=== PATIENT | female | born 1980 | race Caucasian/White ===

== ENCOUNTER 2020-06-24 11:53 | Emergency (ER) | payer BC, OTHER ==
[2020-06-24 14:16] LABS: Absolute Lymphocytes (CBC) 2.2 K/uL (0.7-4.9); Basophils % 1.1 % (0-1.3); Lymphocytes % 34.2 % (15.3-44.8); MPV 8.9 fL (7.6-11.3); RBC Red Blood Cell Count 4.26 M/uL (3.86-4.86)
--- NOTE | 2020-06-24 14:20 | RAD REPORT ---
EXAM DESCRIPTION: RAD - Chest Single View - 06/24/2020 1:55 pm CLINICAL HISTORY: CHEST PAIN COMPARISON: None TECHNIQUE: AP portable chest image was obtained 06/24/2020 1:55 pm . FINDINGS: Lungs are clear. Heart and vasculature are normal. No measurable pleural effusion and no p neumothorax. No acute bony abnormality seen. No acute aortic findings suspected. IMPRESSION: No acute cardiopulmonary process.
[2020-06-24 14:24] LABS: Protime INR 0.95
[2020-06-24 14:42] LABS: ALT/SGPT 40 U/L (12-78); AST/SGOT 18 U/L (15-37); Albumin 4.3 g/dL (3.4-5.0); Alkaline Phosphatase 69 U/L (45-117); BUN Blood Urea Nitrogen 9 mg/dL (7-18); Bicarbonate 29 mmol/L (21-32); Bilirubin Direct < 0.1 mg/dL (0-0.2); Bilirubin Total 0.3 mg/dL (0.2-1.0); Glucose Level 79 mg/dL (74-106); Magnesium 2.1 mg/dL (1.8-2.4); NT PRO-BNP 35 pg/mL (<125); Potassium 3.5 mmol/L (3.5-5.1); Sodium Level 139 mmol/L (136-145); Troponin (Emerg Dept Use Only) < 0.02 ng/mL (0.0-0.045)
--- NOTE | 2020-06-24 16:38 | EDPHYS ---
Physician Documentation [facility] Name: Liya Pike Age: 40 yrs Sex: Female : 1980 Arrival Date: 06/24/2020 Time: 11:56 Bed 13 Private MD: ED Physician Cyrus Kline HPI: 06/24 16:46 This 40 yrs old Female presents to ER via Ambulatory with complaints of Heart kdr Problem, Chest Tightness. 16:46 The patient or guardian reports chest pain that is located primarily in the substernal kdr area, anterior chest wall, chest diffusely. The pain does not radiate. Associated signs and symptoms: Pertinent positives: nausea, shortness of breath. The chest pain is described as dull, a heaviness, a pressure. Duration: The patient or guardian reports multiple episodes, that are intermittent, that wax and wane, with no pattern. Modifying factors: The symptoms are alleviated by nothing. the symptoms are aggravated by. Severity of pain: At its worst the pain was mild. The patient has not recently seen a physician. 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 - Social history:: Smoking status: Patient denies any tobacco usage or history of. ROS: 16:46 Constitutional: Negative for fever, chills, and weight loss, Eyes: Negative for injury, kdr pain, redness, and discharge, Neck: Negative for injury, pain, and swelling, Cardiovascular: Negative for chest pain, palpitations, and edema, Respiratory: Negative for shortness of breath, cough, wheezing, and pleuritic chest pain, Abdomen/GI: Negative for abdominal pain, nausea, vomiting, diarrhea, and constipation, Back: Negative for injury and pain, : Negative for injury, bleeding, discharge, and swelling, MS/Extremity: Negative for injury and deformity, Skin: Negative for injury, rash, and discoloration, Psych: Negative for depression, anxiety, suicide ideation, homicidal ideation, and hallucinations, Allergy/Immunology: Negative for hives, rash, and allergies, Endocrine: Negative for neck swelling, polydipsia, polyuria, polyphagia, and marked weight changes, Hematologic/Lymphatic: Negative for swollen nodes, abnormal bleeding, and unusual bruising. 16:46 Neuro: Positive for weakness. 16:46 Cardiovascular: Positive for Chest pressure. kdr Exam: 16:46 Constitutional: This is a well developed, well nourished patient who is awake, alert, kdr and in no acute distress. Head/Face: Normocephalic, atraumatic. Eyes: Pupils equal round and reactive to light, extra-ocular motions intact. Lids and lashes normal. Conjunctiva and sclera are non-icteric and not injected. Cornea within normal limits. Periorbital areas with no swelling, redness, or edema. Neck: Trachea midline, no thyromegaly or masses palpated, and no cervical lymphadenopathy. Supple, full range of motion without nuchal rigidity, or vertebral point tenderness. No Meningismus. Chest/axilla: Normal chest wall appearance and motion. Nontender with no deformity. No lesions are appreciated. Cardiovascular: Regular rate and rhythm with a normal S1 and S2. No gallops, murmurs, or rubs. Normal PMI, no JVD. No pulse deficits. Respiratory: Lungs have equal breath sounds bilaterally, clear to auscultation and percussion. No rales, rhonchi or wheezes noted. No increased work of breathing, no retractions or nasal flaring. Abdomen/GI: Soft, non-tender, with normal bowel sounds. No distension or tympany. No guarding or rebound. No evidence of tenderness throughout. Back: No spinal tenderness. No costovertebral tenderness. Full range of motion. Skin: Warm, dry with normal turgor. Normal color with no rashes, no lesions, and no evidence of cellulitis. MS/ Extremity: Pulses equal, no cyanosis. Neurovascular intact. Full, normal range of motion. Neuro: Awake and alert, GCS 15, oriented to person, place, time, and situation. Cranial nerves II-XII grossly intact. Motor strength 5/5 in all extremities. Sensory grossly intact. Cerebellar exam normal. Normal gait. Psych: Awake, alert, with orientation to person, place and time. Behavior, mood, and affect are within normal limits. 19:29 ECG was reviewed by the Attending Physician. kdr Vital Signs: 12:06 BP 129 / 84; Pulse 85; Resp 15; Temp 98.4(O); Pulse Ox 99% on R/A; Weight 56.7 kg; ss Height 5 ft. 5 in. (165.10 cm); Pain 09/11; 13:50 BP 110 / 81; Pulse 76; Resp 16 S; Pulse Ox 99% on R/A; ca1 14:45 BP 115 / 85; Pulse 81; Resp 16 S; Pulse Ox 100% on R/A; ca1 15:28 BP 122 / 91; Pulse 82; Resp 16 S; Pulse Ox 100% on R/A; ca1 16:30 BP 104 / 74; Pulse 82; Resp 16 S; Pulse Ox 100% on R/A; ca1 12:06 Body Mass Index 20.80 (56.70 kg, 165.10 cm) ss MDM: 13:51 Patient medically screened. kb 19:29 Data reviewed: vital signs, nurses notes, lab test result(s), EKG, radiologic studies. kdr 06/24 13:43 Order name: Basic Metabolic Panel; Complete Time: 14:54 kb 06/24 13:43 Order name: CBC with Diff; Complete Time: 14:54 kb 06/24 13:43 Order name: LFT's; Complete Time: 14:54 kb 06/24 13:43 Order name: Magnesium; Complete Time: 14:54 kb 06/24 13:43 Order name: NT PRO-BNP; Complete Time: 14:54 kb 06/24 13:43 Order name: PT-INR; Complete Time: 14:54 kb 06/24 12:35 Order name: EKG; Complete Time: 12:36 ss 06/24 12:35 Order name: EKG - Nurse/Tech; Complete Time: 12:35 ss 06/24 13:43 Order name: Troponin (emerg Dept Use Only); Complete Time: 14:54 kb 06/24 13:43 Order name: XRAY Chest (1 view); Complete Time: 14:54 kb 06/24 13:43 Order name: Cardiac monitoring; Complete Time: 14:10 kb 06/24 13:43 Order name: IV Saline Lock; Complete Time: 14:10 kb 06/24 13:43 Order name: Labs collected and sent; Complete Time: 14:10 kb 06/24 14:56 Order name: Troponin (emerg Dept Use Only); Complete Time: 16:35 kdr 06/24 13:43 Order name: O2 Per Protocol; Complete Time: 14:10 kb 06/24 13:43 Order name: O2 Sat Monitoring; Complete Time: 14:11 kb EC:29 Rate is 76 beats/min. Rhythm is regular, Sinus Rhythm with No ectopy. QRS [place] is kdr Normal. OR interval is normal at 106 msec. QRS interval is normal. QT interval is normal. Clinical impression: NSR w/ Non-specific ST/T Changes. Administered Medications: No medications were administered Disposition: 06/24/20 16:38 Discharged to Home. Impression: Chest congestion/tightness. - Condition is Stable. - Discharge Instructions: Nonspecific Chest Pain, [id number]. - Medication Reconciliation Form, Thank You Letter, Work release form form. - Follow up: Nirav Ramon MD; When: 2 - 3 days; Reason: If symptoms return, Further diagnostic work-up, Recheck today's complaints, Continuance of care, Re-evaluation by your physician. - Problem is an ongoing problem. - Symptoms are unchanged. Signatures: Dispatcher [employer] EDMS Liya Aviles, AUTO CUSTOMIZE PAINTER-C AUTO CUSTOMIZE PAINTER-Ckb Cyrus Kline MD MD kdr Sandra Monsalve RN RN ss Olesya Cazares RN RN ca1 Corrections: (The following items were deleted from the chart) 16:49 16:38 06/24/2020 16:38 Discharged to Home. Impression: Chest congestion/tightness. ca1 Condition is Stable. Forms are Medication Reconciliation Form, Thank You Letter, Antibiotic Education, Prescription Opioid Use. Follow up: Nirav Ramon; When: 2 - 3 days; Reason: If symptoms return, Further diagnostic work-up, Recheck today's complaints, Continuance of care, Re-evaluation by your physician. Problem is an ongoing problem. Symptoms are unchanged. kdr
--- NOTE | 2020-06-24 16:38 | ER ---
Nurse's Notes [facility] Name: Liya Pike Age: 40 yrs Sex: Female : 1980 Arrival Date: 06/24/2020 Time: 11:56 Bed 13 Private MD: Diagnosis: Chest congestion/tightness Presentation: 06/24 12:06 Chief complaint: Patient states: "I have a mitral valve prolapse. For the past two ss weeks i've had tightness in my chest and weird sensations down my L arm and I have just been getting progressively worse over the past two weeks.". Coronavirus screen: Client denies travel out of the [place] in the last 14 days. Ebola Screen: Patient denies exposure to infectious person. Patient denies travel to an Ebola-affected area in the 21 days before illness onset. Initial Sepsis Screen: Does the patient meet any 2 criteria? No. Patient's initial sepsis screen is negative. Does the patient have a suspected source of infection? No. Patient's initial sepsis screen is negative. Risk Assessment: Do you want to hurt yourself or someone else? Patient reports no desire to harm self or others. Onset of symptoms was June 10, 2020. 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 - Social history:: Smoking status: Patient denies any tobacco usage or history of. Screenin:50 Abuse screen: Denies threats or abuse. Denies injuries from another. Nutritional ca1 screening: No deficits noted. Tuberculosis screening: No symptoms or risk factors identified. Fall Risk IV access (20 points). Assessment: 13:50 General: Appears in no apparent distress. comfortable, Behavior is calm, cooperative, ca1 appropriate for age. Pain: Complains of pain in anterior aspect of left upper chest Pain radiates to left arm Pain currently is 1 out of 10 on a pain scale. Quality of pain is described as pressure, Pain began 2 weeks Is intermittent. Neuro: Level of Consciousness is awake, alert, obeys commands, Oriented to person, place, time, situation. Cardiovascular: Heart tones S1 S2 present Capillary refill < 3 seconds Patient's skin is warm and dry. Rhythm is sinus rhythm. Respiratory: Airway is patent Respiratory effort is even, unlabored, Respiratory pattern is regular, symmetrical. GI: Abdomen is flat, non-distended, Bowel sounds present X 4 quads. Abd is soft and non tender X 4 quads. : No signs and/or symptoms were reported regarding the genitourinary system. EENT: No signs and/or symptoms were reported regarding the EENT system. Derm: Skin is intact, is healthy with good turgor, Skin is pink, warm \\T\\ dry. Musculoskeletal: Circulation, motion, and sensation intact. Capillary refill < 3 seconds. 14:50 Reassessment: Patient appears in no apparent distress at this time. No changes from ca1 previously documented assessment. Patient and/or family updated on plan of care and expected duration. Pain level reassessed. Patient is alert, oriented x 3, equal unlabored respirations, skin warm/dry/pink. 15:24 Reassessment: Patient appears in no apparent distress at this time. Patient is alert, ca1 oriented x 3, equal unlabored respirations, skin warm/dry/pink. 16:41 Reassessment: Patient appears in no apparent distress at this time. Patient and/or ca1 family updated on plan of care and expected duration. Pain level reassessed. Patient is alert, oriented x 3, equal unlabored respirations, skin warm/dry/pink. Vital Signs: 12:06 BP 129 / 84; Pulse 85; Resp 15; Temp 98.4(O); Pulse Ox 99% on R/A; Weight 56.7 kg; ss Height 5 ft. 5 in. (165.10 cm); Pain 1/10; 13:50 BP 110 / 81; Pulse 76; Resp 16 S; Pulse Ox 99% on R/A; ca1 14:45 BP 115 / 85; Pulse 81; Resp 16 S; Pulse Ox 100% on R/A; ca1 15:28 BP 122 / 91; Pulse 82; Resp 16 S; Pulse Ox 100% on R/A; ca1 16:30 BP 104 / 74; Pulse 82; Resp 16 S; Pulse Ox 100% on R/A; ca1 12:06 Body Mass Index 20.80 (56.70 kg, 165.10 cm) ED Course: 11:56 Patient arrived in ED. bp1 12:09 Triage completed. ss 12:09 Arm band placed on right wrist. ss 12:30 EKG done, by ED staff, reviewed by Cyrus Kline MD. Patient maintains SpO2 saturation ss greater than 95% on room air. 13:50 Patient has correct armband on for positive identification. Placed in gown. Bed in low ca1 position. Call light in reach. Side rails up X2. monitoring engineer on. Pulse ox on. NIBP on. Warm blanket given. 13:51 Olesya Cazares, RN is Primary Nurse. ca1 13:56 XRAY Chest (1 view) In Process Unspecified. EDMS 13:56 Cyrus Kline MD is Attending Physician. kdr 15:28 Troponin (emerg Dept Use Only) Sent. ca1 16:36 Nirav Ramon MD is Referral Physician. kdr 16:49 No provider procedures requiring assistance completed. IV discontinued, intact, ca1 bleeding controlled, No redness/swelling at site. Pressure dressing applied. Administered Medications: No medications were administered Outcome: 16:38 Discharge ordered by . kdr 16:49 Discharged to home ambulatory. ca1 16:49 Condition: stable 16:49 Discharge instructions given to patient, Instructed on discharge instructions, follow up and referral plans. Demonstrated understanding of instructions, follow-up care. 16:49 Patient left the ED. ca1 Signatures: Dispatcher [employer] Cyrus Anguiano MD MD kdr Sandra Monsalve RN RN Olesya Cazares RN RN ca1 Becka Phipps bp1
[2020-06-24 16:55] VITALS: TEMP 98.4
[2020-06-24 16:57] VITALS: O2SAT 100
[2020-06-24 17:00] VITALS: BP 104/74
--- NOTE | 2020-06-25 09:33 | EKG ---
Test Date: 2020-06-24 Test Time: 12:36:34 Dispenser Operator: MINI MEASUREMENT RESULTS: Intervals: Rate: 76 OK: 106 QRSD: 72 QT: 356 QTc: 400 [place]: P: 8 OK: 106 QRS: 70 T: 62 INTERPRETIVE STATEMENTS: Sinus rhythm with short OK Otherwise normal ECG No previous ECG available for comparison Electronically Signed On 06-25-20 09:31:03 CDT by Nirav Ramon
== END 2020-06-24 16:49 | disposition home or self-care (01) ==
LOC: ER 11:53
DX: R09.89 Other specified symptoms and signs involving the circulatory and respiratory systems (principal); R53.1 Weakness; I34.1 Nonrheumatic mitral (valve) prolapse
CPT/HCPCS: 36415; 71045; 80048; 80076; 83735; 83880; 84484; 85025; 85610; 93005; 99285